=== PATIENT | female | born 1960 | race Two or more races ===

== ENCOUNTER 2024-06-21 20:51 | Emergency (ER) | payer OTHER ==
[~2024-06-21] VITALS: Ht 154.9 cm; Wt 63.5 kg
[2024-06-21] MEDS ORDERED: LOSARTAN POTAS100 MG PO (21:01)
[2024-06-21] MEDS ORDERED: NIFEDIPINE ER30 M1 PO (21:02)
[2024-06-21] MEDS ORDERED: BACLOFEN10 MG PO (21:02)
[2024-06-21] MEDS ORDERED: ROSUVASTATIN CA40 MG PO (21:02)
[2024-06-21] MEDS ORDERED: PANTOPRAZOLE SO40 MG PO (21:03)
[2024-06-21] MEDS ORDERED: ZOFRAN8 MG PO (21:03)
[2024-06-22] MEDS ORDERED: METHYLPREDNISOLONE SOD SUCC 500 MG VIAL IV STA (01:58)
== END 2024-06-22 04:59 | disposition home or self-care (01) ==
LOC: ER 20:53
DX: G62.89 Other specified polyneuropathies (principal); Z88.8 Allergy status to other drugs, medicaments and biological substances